=== PATIENT | female | born 1980 | race Caucasian/White ===

== ENCOUNTER 2017-09-24 02:51 | Inpatient (IN) | payer OTHER ==
[2017-09-24] MEDS: LACTATED RINGER'S 1,000 ML IV ×4 (05:05→14:24)
[2017-09-24 05:31] LABS: ADD MAN DIFF? NO
[2017-09-24 05:45] LABS: WHITE BLOOD COUNT 7.8 10^3/ul (4.8-10.8)
[2017-09-24 05:45] LABS: BASOPHILS % 0.4 % (0.0-2.0); EOSINOPHILS # 0.1 10^3/ul (0.0-0.5); HEMATOCRIT 30.9 % (37.0-47.0); HEMOGLOBIN 10.7 g/dl (12.0-16.0); LYMPHOCYTES % 25.1 % (15.0-51.0); MEAN CORPUSCULAR HEMOGLOBIN 29.4 pg (29.0-33.0); MEAN CORPUSCULAR HGB CONC 34.6 g/dl (32.0-37.0); MEAN CORPUSCULAR VOLUME 84.9 fl (82.0-101.0); MEAN PLATELET VOLUME 12.7 fl (7.4-10.4); MONOCYTE # 0.7 10^3/ul (0.3-0.9); MONOCYTES % 9.3 % (0.0-11.0); NEUTROPHILS % 63.7 % (39.0-77.0); PLATELET COUNT 173 10^3/UL (140-415); RED BLOOD COUNT 3.64 10^6/ul (4.20-5.40); RED CELL DISTRIBUTION WIDTH 14.4 % (11.5-14.5)
[2017-09-24 06:13] LABS: INR 0.95; PROTIME 12.8 Sec (11.9-14.9)
[2017-09-24 06:14] LABS: PARTIAL THROMBOPLASTIN TIME 27.5 Sec (25.0-35.0)
[2017-09-24 06:30] LABS: ALANINE AMINOTRANSFERASE 55 IU/L (13-69); ALBUMIN 3.2 g/dl (3.3-4.9); ALBUMIN/GLOBULIN RATIO 0.88; ALKALINE PHOSPHATASE 132 IU/L (42-121); ANION GAP 14 (8-16); ASPARTATE AMINO TRANSFERASE 55 IU/L (15-46); BILIRUBIN,INDIRECT 0.3 mg/dl (0-1.1); BILIRUBIN,TOTAL 0.3 mg/dl (0.2-1.3); BLOOD UREA NITROGEN 13 mg/dl (7-20); CALCIUM 8.4 mg/dl (8.4-10.2); CARBON DIOXIDE 19 mmol/L (21-31); CHLORIDE 109 mmol/L (97-110); CREATININE 0.52 mg/dl (0.44-1.00); GLUCOSE 79 mg/dl (70-220); POTASSIUM 3.9 mmol/L (3.5-5.1); SODIUM 138 mmol/L (135-144); TOTAL PROTEIN 6.8 g/dl (6.1-8.1); URIC ACID 5.8 mg/dl (3.1-7.9)
[2017-09-24 06:58] LABS: ADD UMIC YES; UR ASCORBIC ACID NEGATIVE (NEGATIVE); UR BACTERIA FEW /HPF (NONE SEEN); UR BILIRUBIN (Dip) NEGATIVE (NEGATIVE); UR BLOOD (Dip) NEGATIVE (NEGATIVE); UR CLARITY CLOUDY (CLEAR); UR COLOR AMBER (YELLOW); UR GLUCOSE (Dip) NEGATIVE (NEGATIVE); UR KETONES (Dip) NEGATIVE (NEGATIVE); UR LEUKOCYTE ESTERASE (Dip) 2+ Leu/ul (NEGATIVE); UR MUCUS MANY /HPF (NONE SEEN); UR NITRITE (Dip) NEGATIVE (NEGATIVE); UR RBC 1 /HPF (0-5); UR SQUAMOUS EPITHELIAL CELL MODERATE /HPF (FEW); UR TOTAL PROTEIN (Dip) 2+ mg/dl (NEGATIVE); UR UROBILINOGEN (Dip) 1+ mg/dL (NEGATIVE); UR WBC 123 /HPF (0-5)
[2017-09-24] MEDS ORDERED: LACTATED RINGER'S 1,000 ML IV ×2 (07:29→07:53)
[2017-09-24] MEDS: DEXTROSE 5%-LR 1,000 ML IV (08:14)
[2017-09-24] MEDS: CEFAZOLIN 2 GM/50 ML (PMX) 50 ML IVPB ×3 (08:14→21:38)
[2017-09-24] MEDS ORDERED: CARBOPROST 250 MCG INJ IM ×2 (09:00→14:30)
[2017-09-24] MEDS ORDERED: MISOPROSTOL 200 MCG TAB PR ×2 (09:00→14:30)
[2017-09-24] MEDS ORDERED: OXYTOCIN 30 UNITS/LR 500 ML IV ×3 (09:00→14:10)
[2017-09-24] MEDS ORDERED: METHYLERGONOVINE 0.2 MG INJ IM ×2 (09:00→14:30)
[2017-09-24] MEDS ORDERED: CEFAZOLIN 2 GM/50 ML (PMX) 50 ML IV (09:00)
[2017-09-24] MEDS ORDERED: ONDANSETRON 4 MG INJ ×2 (09:49→14:22)
[2017-09-24] MEDS ORDERED: CITRIC ACID/NA CITRATE 30 ML CUP (12:53)
[2017-09-24] MEDS: FAMOTIDINE 20 MG INJ IV (13:07)
[2017-09-24] MEDS: METOCLOPRAMIDE 10 MG INJ IV (13:07)
[2017-09-24] MEDS: CITRIC ACID/SODIUM CITRATE 15 ML CUP PO (13:07)
[2017-09-24] MEDS ORDERED: FENTAnyl 50 MCG/ML VIAL (13:13)
[2017-09-24] MEDS ORDERED: morphine SULFATE/PF (10 MG/10 ML) INJ (13:13)
[2017-09-24] MEDS ORDERED: FENTAnyl 50 MCG/ML VIAL IV ×2 (14:30→16:00)
[2017-09-24] MEDS ORDERED: PROCHLORPERAZINE 10 MG INJ IV ×2 (14:30→16:00)
[2017-09-24] MEDS ORDERED: ONDANSETRON 4 MG INJ IV (14:30)
[2017-09-24] MEDS ORDERED: DIPHENHYDRAMINE 50 MG INJ IV ×3 (14:30→16:00)
[2017-09-24] MEDS ORDERED: HYDROCODONE/APAP (5/325) TAB PO (14:30)
[2017-09-24] MEDS ORDERED: MEPERIDINE 25 MG INJ IV ×2 (14:30→16:00)
[2017-09-24] MEDS ORDERED: HYDROmorphONE (0.2 MG/ML) 10ML SYG IV ×2 (14:30→16:00)
[2017-09-24 15:37] LABS: RAPID PLASMA REAGIN NONREACTIVE (NR)
[2017-09-24] MEDS ORDERED: KETOROLAC 30 MG INJ (15:44)
[2017-09-24] MEDS: MAGNESIUM SULFATE 20 GM/500 ML 500 ML IV (15:52)
[2017-09-24] MEDS: LABETALOL 100 MG TAB PO ×2 (15:53→22:53)
[2017-09-24] MEDS: KETOROLAC 30 MG INJ IV ×2 (15:54→21:28)
[2017-09-24] MEDS ORDERED: NALOXONE (0.4 MG/ML) INJ IV (16:00)
[2017-09-24] MEDS ORDERED: HYDROmorphONE 0.5 MG/0.5 ML SYG IV ×2 (16:00)
[2017-09-24] MEDS ORDERED: ZOLPIDEM 5 MG TAB PO (16:00)
[2017-09-24] MEDS ORDERED: hydrALAzine 20 MG INJ IV (16:00)
[2017-09-24] MEDS: ONDANSETRON 4 MG INJ IV ×2 (16:15→22:36)
[2017-09-24] MEDS: IBUPROFEN 600 MG TAB PO (18:00)
[2017-09-24] MEDS: OXYTOCIN 30 UNITS/LR 500 ML IV (18:59)
[2017-09-24] MEDS: ACCU-CHEK XX (20:33)
[2017-09-24] MEDS: SENNA/DOCUSATE NA (8.6MG/50MG) TAB PO (21:00)
[2017-09-25 01:13] LABS: MAGNESIUM 4.5 mg/dl (1.7-2.5)
[2017-09-25] MEDS: MAGNESIUM SULFATE 20 GM/500 ML 500 ML IV ×2 (02:06→10:30)
[2017-09-25] MEDS: KETOROLAC 30 MG INJ IV ×4 (04:20→12:21)
[2017-09-25] MEDS: IBUPROFEN 600 MG TAB PO ×4 (06:00→19:00)
[2017-09-25] MEDS: OXYTOCIN 30 UNITS/LR 500 ML IV (07:05)
[2017-09-25] MEDS: CEFAZOLIN 2 GM/50 ML (PMX) 50 ML IVPB (07:09)
[2017-09-25] MEDS: LABETALOL 100 MG TAB PO ×3 (07:10→21:58)
[2017-09-25] MEDS: ACCU-CHEK XX ×4 (08:13→22:08)
[2017-09-25 09:19] LABS: ADD MAN DIFF? NO
[2017-09-25 09:28] LABS: BASOPHILS % 0.2 % (0.0-2.0); EOSINOPHILS # 0.1 10^3/ul (0.0-0.5); EOSINOPHILS % 0.8 % (0.0-7.0); HEMATOCRIT 27.5 % (37.0-47.0); HEMOGLOBIN 9.8 g/dl (12.0-16.0); LYMPHOCYTES # 1.4 10^3/ul (0.8-2.9); LYMPHOCYTES % 14.6 % (15.0-51.0); MEAN CORPUSCULAR HGB CONC 35.6 g/dl (32.0-37.0); MEAN CORPUSCULAR VOLUME 84.1 fl (82.0-101.0); MEAN PLATELET VOLUME 12.1 fl (7.4-10.4); MONOCYTE # 0.9 10^3/ul (0.3-0.9); MONOCYTES % 9.4 % (0.0-11.0); NEUTROPHIL # 6.9 10^3/ul (1.6-7.5); NEUTROPHILS % 74.4 % (39.0-77.0); PLATELET COUNT 148 10^3/UL (140-415); RED BLOOD COUNT 3.27 10^6/ul (4.20-5.40); RED CELL DISTRIBUTION WIDTH 14.3 % (11.5-14.5)
[2017-09-25 09:28] LABS: WHITE BLOOD COUNT 9.3 10^3/ul (4.8-10.8)
[2017-09-25] MEDS: SENNA/DOCUSATE NA (8.6MG/50MG) TAB PO ×2 (09:39→21:58)
[2017-09-25 10:21] LABS: HEPATITIS B SURFACE ANTIGEN NEGATIVE (NEGATIVE)
[2017-09-25 12:57] LABS: MAGNESIUM 4.5 mg/dl (1.7-2.5)
[2017-09-25] MEDS: LANOLIN 7 GM TUBE TOP (19:01)
[2017-09-25] MEDS: HYDROCODONE/APAP (5/325) TAB PO (19:01)
[2017-09-26] MEDS: HYDROCODONE/APAP (5/325) TAB PO ×4 (02:46→23:19)
[2017-09-26] MEDS: IBUPROFEN 600 MG TAB PO ×5 (06:00→23:19)
[2017-09-26] MEDS: LABETALOL 100 MG TAB PO ×3 (06:29→22:15)
[2017-09-26] MEDS: ACCU-CHEK XX ×4 (07:30→21:10)
[2017-09-26] MEDS: SENNA/DOCUSATE NA (8.6MG/50MG) TAB PO ×2 (08:36→22:14)
[2017-09-27] MEDS: HYDROCODONE/APAP (5/325) TAB PO ×3 (04:00→21:29)
[2017-09-27] MEDS: IBUPROFEN 600 MG TAB PO ×3 (06:07→18:34)
[2017-09-27] MEDS: LABETALOL 100 MG TAB PO ×3 (06:07→21:32)
[2017-09-27] MEDS: ACCU-CHEK XX ×4 (07:30→20:05)
[2017-09-27] MEDS: SENNA/DOCUSATE NA (8.6MG/50MG) TAB PO ×2 (08:49→21:30)
[2017-09-27] MEDS: BISACODYL 10 MG SUPP PR (09:00)
[2017-09-28] MEDS: IBUPROFEN 600 MG TAB PO ×3 (01:05→12:31)
[2017-09-28] MEDS: LABETALOL 100 MG TAB PO ×2 (05:49→15:18)
[2017-09-28] MEDS: ACCU-CHEK XX ×3 (07:30→13:50)
[2017-09-28] MEDS: HYDROCODONE/APAP (5/325) TAB PO ×2 (10:06→15:08)
[2017-09-28] MEDS: SENNA/DOCUSATE NA (8.6MG/50MG) TAB PO (10:06)
[2017-09-28] MEDS: DIPHTH/TET/ACEL PERTUSS (ADULT) 0.5 ML VIAL IM* (16:53)
== END 2017-09-28 19:05 | disposition home or self-care (01) | DRG 765 ==
LOC: OBT 02:51 → L-D 02:51 → OBT 07:39 → L-D 07:30 → PP1 18:19
PROC: 10D00Z1 Extraction of Products of Conception, Low, Open Approach (ICD-10-PCS; principal; 2017-09-24 13:30)
PROC: 0UB70ZZ Excision of Bilateral Fallopian Tubes, Open Approach (ICD-10-PCS; 2017-09-24 13:30)
DX: O14.14 Severe pre-eclampsia complicating childbirth (principal); O40.3XX0 Polyhydramnios, third trimester, not applicable or unspecified; O24.32 Unspecified pre-existing diabetes mellitus in childbirth; E11.65 Type 2 diabetes mellitus with hyperglycemia; Z37.0 Single live birth; E66.9 Obesity, unspecified; O34.211 Maternal care for low transverse scar from previous cesarean delivery; Z3A.35 35 weeks gestation of pregnancy; O99.214 Obesity complicating childbirth; Z68.34 Body mass index [BMI] 34.0-34.9, adult; Z79.4 Long term (current) use of insulin; Z30.2 Encounter for sterilization
CPT/HCPCS: 36415; 76815; 76818; 80053; 81001; 82962; 83735; 84560; 85025; 85610; 85730; 86592; 86850; 86900; 86901; 86920; 87340; 90715; 94760; 96360; 99464